=== PATIENT | female | born 1990 | race Caucasian/White ===

== ENCOUNTER 2018-08-31 09:51 | Emergency (ER) | payer OTHER ==
--- NOTE | 2018-08-31 11:50 | ED PDOC ---
HPI: Female Pain Time Seen by Provider: 08/31/18 10:45 Chief Complaint (Nursing): Female Genitourinary Chief Complaint (Provider): Tampon applicator left in History Per: Patient History/Exam Limitations: no limitations Additional Complaint(s): 27 y/o F with no significant PMH who presents with c/o tampon applicator being left in this morning. Patient states that she was able to remove the bottom portion of the applicator as well as the tampon itself. Denies pelvic pain, fever, chills, night sweats. Dysuria. Denies hx of asthma or DM. Past Medical History - Allergies Allergies/Adverse Reactions: Allergies Allergy/AdvReac Type Severity Reaction Status Date / Time No Known Allergies Allergy Verified 08/31/18 10:52 Physical Exam - Reviewed Nursing Documentation Reviewed: Yes Vital Signs Reviewed: Yes - Physical Exam Appears: Positive for: Non-toxic Gastrointestinal/Abdominal: Positive for: Normal Exam Pelvic Exam: Positive for: External Exam Normal, Speculum Exam Normal (normal, very painful as patient is a virgin), Bimanual Exam Normal (applicator discovered and removed manually by Dr. Doherty w/o need for forceps. ), Active Bleeding (patient is currently menstruating) Medical Decision Making Medical Decision Making: Follow-up with control equipment electrician for further evaluation. Patient instructed to avoid use of Tampons for the time being and use Ibuprofen/Tylenol for pain. Disposition - Patient ED Disposition Is Patient to be Admitted: No - Disposition
[2018-08-31 12:13] VITALS: RESP 16; O2SAT 100
[2018-08-31 12:16] VITALS: BP 118/67; PULSE 59; TEMP 97.8
== END 2018-08-31 12:14 | disposition home or self-care (01) ==
LOC: H.ER 09:51
DX: T19.2XXA Foreign body in vulva and vagina, initial encounter (principal)